=== PATIENT | male | born 1980 | race Caucasian/White ===

== ENCOUNTER 2018-01-30 13:53 | Outpatient (CLI) | payer BC ==
--- NOTE | 2018-01-30 15:33 | Diagnostic Imaging Report ---
Exam: FILM RIGHT FOOT 01/30/18 at 1408 hrs. INDICATION: Fracture COMPARISON: none FINDINGS: 3 views of the right foot are obtained. Acute oblique fracture of the medial base of the distal phalanx of the great toe with intra-articular extension without significant displacement. No other fractures. No joint malalignment. Soft tissue swelling of the great toe. There is a 4 mm radiopaque density in the mid foot plantar subcutaneous soft tissues at the proximal third metatarsal level. This could represent a radiopaque loose body or a soft tissue calcification. Joint spaces maintained. No calcaneal spurs. No arthritic changes. Remaining soft tissues are unremarkable by radiograph exam. IMPRESSION: Acute oblique fracture of the medial base of the distal phalanx of the great toe with intra-articular extension without significant displacement. No other fractures. No joint malalignment. Soft tissue swelling of the great toe. There is a 4 mm radiopaque density in the mid foot plantar subcutaneous soft tissues at the proximal third metatarsal level. This could represent a radiopaque loose body or a soft tissue calcification. Given the appearance soft tissue calcification more favored.
== END 2018-01-30 15:53 | disposition home or self-care (01) ==
LOC: RAD 13:53
DX: S92.401A Displaced unspecified fracture of right great toe, initial encounter for closed fracture (principal); X58.XXXA Exposure to other specified factors, initial encounter; Y93.9 Activity, unspecified; Y92.9 Unspecified place or not applicable